=== PATIENT | female | born 1960 | race Caucasian/White ===

== ENCOUNTER 2016-07-10 15:02 | Inpatient (IN) | payer OTHER ==
[~2016-07-10] VITALS: Ht 162.6 cm; Wt 57.6 kg
[2016-07-10 16:30] VITALS: BP 152/89
[2016-07-10] MEDS ORDERED: LORAZEPAM 1 MG TABLET PO ONE ×2 (18:00→21:00)
[2016-07-10] MEDS ORDERED: 5-HY50CA2 PO (18:04)
[2016-07-10] MEDS ORDERED: FAMC250T GT (18:04)
[2016-07-10] MEDS ORDERED: MELA3TAB42 PO (18:04)
[2016-07-10] MEDS ORDERED: ALBU8.5H2 IH (18:04)
[2016-07-10] MEDS ORDERED: S-AD400T2 PO (18:04)
[2016-07-10] MEDS ORDERED: BISA5TAB13 (18:04)
[2016-07-10] MEDS ORDERED: CA C1TAB98 PO (18:04)
[2016-07-10] MEDS ORDERED: CHOL100043 PO (18:04)
[2016-07-10] MEDS ORDERED: MULT1TAB11 PO (18:04)
[2016-07-10] MEDS ORDERED: NITR100C6 PO (18:04)
[2016-07-10] MEDS ORDERED: NORE5TAB PO (18:04)
[2016-07-10] MEDS ORDERED: BALS750C PO (18:04)
[2016-07-10] MEDS ORDERED: ALBUTEROL SULFATE 8 GM HFA.AER.AD IH PRN (18:15)
[2016-07-10] MEDS ORDERED: ONDANSETRON ODT 4 MG TAB.RAPDIS SL PRN (18:15)
[2016-07-10] MEDS ORDERED: IBUPROFEN 400 MG TABLET PO PRN (18:15)
[2016-07-10] MEDS ORDERED: MAG HYDROX/AL HYDROX/SIMETH 30 ML LIQUID UDC PO PRN (18:15)
[2016-07-10] MEDS ORDERED: ACETAMINOPHEN 325 MG TABLET PO PRN (18:15)
[2016-07-10] MEDS ORDERED: LORAZEPAM 2 MG/1 ML VIAL IM PRN (18:15)
[2016-07-10] MEDS ORDERED: THIAMINE HCL 200 MG/2 ML VIAL IM ONE (18:15)
[2016-07-10] MEDS ORDERED: LORAZEPAM 1 MG TABLET PO PRN ×2 (18:15)
[2016-07-10] MEDS ORDERED: diphenhydrAMINE 50 MG CAPSULE PO PRN (18:15)
[2016-07-10] MEDS ORDERED: PROMETHAZINE HCL 25 MG/1 ML VIAL IM PRN (18:15)
[2016-07-10] MEDS ORDERED: MAGNESIUM HYDROXIDE 30 ML LIQUID UDC PO PRN (18:15)
[2016-07-10] MEDS ORDERED: DICYCLOMINE HCL 20 MG TABLET PO PRN (18:15)
[2016-07-10] MEDS ORDERED: FAMC500T PO (18:15)
[2016-07-10] MEDS ORDERED: MIRALAX 17 GM POWD.PACK PO PRN (18:15)
[2016-07-10] MEDS ORDERED: LOPERAMIDE HCL 2 MG CAPSULE PO PRN ×2 (18:15)
[2016-07-10 18:22] LABS: *AMPHETAMINE, URINE NEGATIVE (NEGATIVE); *BARBITURATE, URINE NEGATIVE (NEGATIVE); *CANNABINOID, URINE NEGATIVE (NEGATIVE); *COCCAINE, URINE NEGATIVE (NEGATIVE); *OPIATE, URINE NEGATIVE (NEGATIVE); *PHENCYCLIDINE SCREEN,URINE NEGATIVE (NEGATIVE)
[2016-07-10 18:43] LABS: BASOPHILS % (AUTO) 1.1 % (0.0-2.0); EOSINOPHILS % (AUTO) 0.7 % (0.0-7.0); HEMATOCRIT 40.6 % (37.0-47.0); HEMOGLOBIN 13.6 g/dL (12.0-16.0); LYMPHOCYTES # (AUTO) 1.1 K/uL (0.8-4.8); LYMPHOCYTES % (AUTO) 25.2 % (20.5-51.5); MEAN CORPUSCULAR HEMOGLOBIN 33.6 uug (27.0-31.0); MEAN CORPUSCULAR HGB CONC 34 g/dL (32.0-37.0); MEAN CORPUSCULAR VOLUME 100.1 fL (81.0-99.0); MONOCYTES # (AUTO) 0.4 K/uL (0.1-1.30); MONOCYTES % (AUTO) 8.1 % (0.0-11.0); NEUTROPHILS # (AUTO) 2.9 K/uL (1.8-8.9); NEUTROPHILS % (AUTO) 64.9 % (38.5-71.5); PLATELET COUNT (AUTO) 314 K/uL (150-450); RED BLOOD CELL COUNT(AUTO) 4.06 MIL/uL (4.20-5.40); RED CELL DISTRIBUTION WIDTH 12.8 % (11.5-14.5); WHITE BLOOD COUNT (AUTO) 4.4 K/uL (4.0-11.2)
[2016-07-10] MEDS: GABAPENTIN 300 MG CAPSULE PO SCH (19:01)
[2016-07-10 19:02] LABS: ALBUMIN 3.5 g/dL (3.4-5.0); BILIRUBIN,TOTAL 0.5 mg/dL (0.2-1.0); CALCIUM 8.8 mg/dL (8.5-10.1); CREATININE 0.8 mg/dL (0.6-1.3); MAGNESIUM 2.1 mg/dL (1.8-2.4); TOTAL PROTEIN, SERUM 7.2 g/dL (6.4-8.2)
[2016-07-10 19:04] LABS: THYROID STIMULATING HORMONE 1.46 mIU/mL (0.358-3.740)
[2016-07-10 19:25] LABS: HIV-1/2 ANTIBODY NON REACTIVE (NONREACTIVE)
[2016-07-10 19:26] LABS: HIV-1 p24 ANTIGEN NON REACTIVE (NONREACTIVE)
[2016-07-10 20:00] VITALS: BP 131/72
[2016-07-10] MEDS: [UNRECOGNIZED DRUG - OTHER] PO SCH (21:27)
[2016-07-11] VITALS: BP_SYST 131; BP_SYST 133; BP_DIAS 72; BP_DIAS 87
[2016-07-11] MEDS: CLONIDINE HCL 0.1 MG TABLET PO PRN (00:22)
[2016-07-11 04:00] VITALS: BP 139/83
[2016-07-11 08:00] VITALS: BP 123/75
[2016-07-11] MEDS ORDERED: FAMCICLOVIR 250 MG PO SCH (09:00)
[2016-07-11] MEDS ORDERED: TUBERCULIN,PURIF.PROT.DERIV. 5 TU/0.1 ML TEST ID ONE (09:00)
[2016-07-11] MEDS: LORAZEPAM 1 MG TABLET PO SCH ×3 (09:02→20:44)
[2016-07-11] MEDS: CHOLECALCIFEROL 1,000 UNIT TABLET PO SCH (09:02)
[2016-07-11] MEDS: GABAPENTIN 300 MG CAPSULE PO SCH ×2 (09:02→17:06)
[2016-07-11] MEDS: THIAMINE HCL 100 MG TABLET PO SCH (09:02)
[2016-07-11] MEDS: DOCUSATE SODIUM 250 MG CAPSULE PO SCH (09:02)
[2016-07-11] MEDS: NITROFURANTOIN/NITROFURAN MAC 100 MG CAPSULE PO SCH ×2 (09:02→17:06)
[2016-07-11] MEDS: MULTIVITAMINS,THERAPEUTIC TABLET PO SCH (09:02)
[2016-07-11] MEDS: FOLIC ACID 1 MG TABLET PO SCH (09:03)
[2016-07-11] MEDS: FAMCICLOVIR PO SCH ×2 (11:00→17:07)
[2016-07-11] MEDS: ESCITALOPRAM OXALATE 10 MG TABLET PO SCH (11:00)
[2016-07-11] MEDS: HYDROXYZINE PAMOATE 25 MG CAPSULE PO PRN (11:03)
[2016-07-11 12:00] VITALS: BP 130/78
[2016-07-11] MEDS: BALSALAZIDE 750 MG PO SCH ×2 (13:00→17:07)
[2016-07-11 13:42] LABS: *BILIRUBIN,URIN NEGATIVE (NEGATIVE); *BLOOD, URINE 2+ (NEGATIVE); *CLARITY,URINE CLEAR (CLEAR); *COLOR,URINE YELLOW (YELLOW); *KETONES,URINE TRACE (NEGATIVE); *PROTEIN,URINE NEGATIVE (NEGATIVE); *UROBILINOGEN,URINE 0.2 E.U./dl (NORMAL); LEUKOCYTE ESTERASE ,URINE NEGATIVE (NEGATIVE); NITRITE, URINE NEGATIVE (NEGATIVE); PH,URINE 7.5 (5.0-8.0); UGLUCOSE NEGATIVE (NEGATIVE)
[2016-07-11 13:51] LABS: BACTERIA,URINE FEW /HPF (NONE SEEN); RBC,URINE 20-50 /HPF (0-3); SQUAMOUS EPITHELIAL CELL,UR FEW /HPF (NONE SEEN); WBC,URINE 0-3 /HPF (0-3)
[2016-07-11 16:00] VITALS: BP 129/80
[2016-07-11 20:00] VITALS: BP 126/98
[2016-07-11] MEDS: TRAZODONE 100 MG TABLET PO SCH (20:44)
[2016-07-11] MEDS: [UNRECOGNIZED DRUG - OTHER] PO SCH (20:45)
[2016-07-11] MEDS ORDERED: PATIENT MAY USE OWN MED- MD OK PO SCH (21:00)
[2016-07-11] MEDS: diphenhydrAMINE 50 MG CAPSULE PO PRN (22:59)
[2016-07-11] MEDS ORDERED: diphenhydrAMINE 50 MG CAPSULE ONE (23:04)
[2016-07-12] VITALS: BP 121/68
[2016-07-12 08:00] VITALS: BP 122/63
[2016-07-12 08:41] LABS: ALBUMIN 3.4 g/dL (3.4-5.0); BILIRUBIN,DIRECT 0.2 mg/dL (0.0-0.2); BILIRUBIN,TOTAL 0.8 mg/dL (0.2-1.0); CALCIUM 9.5 mg/dL (8.5-10.1); CREATININE 0.9 mg/dL (0.6-1.3); POTASSIUM 4.2 mmol/L (3.5-5.1); TOTAL PROTEIN, SERUM 6.7 g/dL (6.4-8.2)
[2016-07-12] MEDS ORDERED: PNEUMOCOCCAL 23-VAL P-SAC VAC 0.5 ML VIAL IM ONE (09:30)
[2016-07-12] MEDS ORDERED: INFLUENZA VACCINE 0.5 ML DISP.SYRIN IM ONE (09:30)
[2016-07-12] MEDS: FOLIC ACID 1 MG TABLET PO SCH (09:54)
[2016-07-12] MEDS: MULTIVITAMINS,THERAPEUTIC TABLET PO SCH (09:54)
[2016-07-12] MEDS: FAMCICLOVIR PO SCH ×2 (09:55→17:00)
[2016-07-12] MEDS: NITROFURANTOIN/NITROFURAN MAC 100 MG CAPSULE PO SCH ×2 (09:55→17:01)
[2016-07-12] MEDS: THIAMINE HCL 100 MG TABLET PO SCH (09:55)
[2016-07-12] MEDS: GABAPENTIN 300 MG CAPSULE PO SCH ×3 (09:55→20:55)
[2016-07-12] MEDS: ESCITALOPRAM OXALATE 10 MG TABLET PO SCH (09:55)
[2016-07-12] MEDS: BALSALAZIDE 750 MG PO SCH ×3 (09:55→17:00)
[2016-07-12] MEDS: CHOLECALCIFEROL 1,000 UNIT TABLET PO SCH (09:55)
[2016-07-12] MEDS: DOCUSATE SODIUM 250 MG CAPSULE PO SCH (09:55)
[2016-07-12] MEDS: LORAZEPAM 1 MG TABLET PO SCH ×4 (09:55→20:54)
[2016-07-12 12:00] VITALS: BP 131/86
[2016-07-12 16:00] VITALS: BP 155/85
[2016-07-12 20:00] VITALS: BP 125/70
[2016-07-12] MEDS: TRAZODONE 100 MG TABLET PO SCH (20:55)
[2016-07-12] MEDS: [UNRECOGNIZED DRUG - OTHER] PO SCH (20:55)
[2016-07-12] MEDS: diphenhydrAMINE 50 MG CAPSULE PO PRN (23:39)
[2016-07-13] VITALS: BP 118/69
[2016-07-13 08:00] VITALS: BP 133/72
[2016-07-13] MEDS: CHOLECALCIFEROL 1,000 UNIT TABLET PO SCH (09:01)
[2016-07-13] MEDS: ESCITALOPRAM OXALATE 10 MG TABLET PO SCH (09:01)
[2016-07-13] MEDS: MULTIVITAMINS,THERAPEUTIC TABLET PO SCH (09:01)
[2016-07-13] MEDS: GABAPENTIN 300 MG CAPSULE PO SCH ×3 (09:01→21:04)
[2016-07-13] MEDS: FOLIC ACID 1 MG TABLET PO SCH (09:01)
[2016-07-13] MEDS: THIAMINE HCL 100 MG TABLET PO SCH (09:01)
[2016-07-13] MEDS: DOCUSATE SODIUM 250 MG CAPSULE PO SCH (09:01)
[2016-07-13] MEDS: NITROFURANTOIN/NITROFURAN MAC 100 MG CAPSULE PO SCH ×2 (09:01→16:58)
[2016-07-13] MEDS: LORAZEPAM 1 MG TABLET PO SCH ×3 (09:01→21:03)
[2016-07-13] MEDS: FAMCICLOVIR PO SCH ×2 (09:02→16:58)
[2016-07-13] MEDS: BALSALAZIDE 750 MG PO SCH ×3 (09:02→16:58)
[2016-07-13 12:00] VITALS: BP 121/82
[2016-07-13 16:00] VITALS: BP 126/78
[2016-07-13 20:00] VITALS: BP 147/79
[2016-07-13] MEDS: QUETIAPINE FUMARATE 25 MG TABLET PO SCH (21:03)
[2016-07-13] MEDS: [UNRECOGNIZED DRUG - OTHER] PO SCH (21:07)
[2016-07-14 03:06] LABS: HCV AB 0.1 s/co ratio (0.0-0.9); HEPATITIS B CORE AB, IgM Negative (Negative); HEPATITIS B SURFACE AG Negative (Negative)
[2016-07-14 08:00] VITALS: BP 126/78
[2016-07-14] MEDS: DOCUSATE SODIUM 250 MG CAPSULE PO SCH (09:25)
[2016-07-14] MEDS: GABAPENTIN 300 MG CAPSULE PO SCH ×3 (09:26→20:57)
[2016-07-14] MEDS: FOLIC ACID 1 MG TABLET PO SCH (09:26)
[2016-07-14] MEDS: THIAMINE HCL 100 MG TABLET PO SCH (09:26)
[2016-07-14] MEDS: ESCITALOPRAM OXALATE 10 MG TABLET PO SCH (09:26)
[2016-07-14] MEDS: NITROFURANTOIN/NITROFURAN MAC 100 MG CAPSULE PO SCH ×2 (09:26→17:19)
[2016-07-14] MEDS: CHOLECALCIFEROL 1,000 UNIT TABLET PO SCH (09:26)
[2016-07-14] MEDS: FAMCICLOVIR PO SCH ×2 (09:26→17:20)
[2016-07-14] MEDS: BALSALAZIDE 750 MG PO SCH ×3 (09:26→17:20)
[2016-07-14] MEDS: MULTIVITAMINS,THERAPEUTIC TABLET PO SCH (09:26)
[2016-07-14] MEDS: LORAZEPAM 1 MG TABLET PO SCH ×2 (09:26→20:56)
[2016-07-14 12:15] VITALS: BP 139/92
[2016-07-14] MEDS: CLONIDINE HCL 0.1 MG TABLET PO PRN (14:39)
[2016-07-14] MEDS: HYDROXYZINE PAMOATE 25 MG CAPSULE PO PRN (14:39)
[2016-07-14 16:00] VITALS: BP 119/69
[2016-07-14 20:00] VITALS: BP 125/65
[2016-07-14] MEDS: QUETIAPINE FUMARATE 25 MG TABLET PO SCH (20:56)
[2016-07-14] MEDS: [UNRECOGNIZED DRUG - OTHER] PO SCH (20:57)
[2016-07-15] VITALS: BP 118/69
[2016-07-15] MEDS: diphenhydrAMINE 50 MG CAPSULE PO PRN ×2 (01:01→21:15)
[2016-07-15 08:00] VITALS: BP 126/72
[2016-07-15] MEDS: THIAMINE HCL 100 MG TABLET PO SCH (08:37)
[2016-07-15] MEDS: GABAPENTIN 300 MG CAPSULE PO SCH ×3 (08:37→21:15)
[2016-07-15] MEDS: FOLIC ACID 1 MG TABLET PO SCH (08:37)
[2016-07-15] MEDS: NITROFURANTOIN/NITROFURAN MAC 100 MG CAPSULE PO SCH ×2 (08:37→17:55)
[2016-07-15] MEDS: CHOLECALCIFEROL 1,000 UNIT TABLET PO SCH (08:37)
[2016-07-15] MEDS: FAMCICLOVIR PO SCH ×2 (08:37→17:55)
[2016-07-15] MEDS: BALSALAZIDE 750 MG PO SCH ×3 (08:37→17:55)
[2016-07-15] MEDS: MULTIVITAMINS,THERAPEUTIC TABLET PO SCH (08:37)
[2016-07-15] MEDS: DOCUSATE SODIUM 250 MG CAPSULE PO SCH (08:37)
[2016-07-15] MEDS: ESCITALOPRAM OXALATE 10 MG TABLET PO SCH (08:37)
[2016-07-15] MEDS ORDERED: LORAZEPAM 1 MG TABLET PO ONE (11:30)
[2016-07-15 12:07] VITALS: BP 158/92
[2016-07-15 16:00] VITALS: BP 126/69
[2016-07-15 20:00] VITALS: BP 135/82
[2016-07-15] MEDS: QUETIAPINE FUMARATE 25 MG TABLET PO SCH (21:15)
[2016-07-15] MEDS: [UNRECOGNIZED DRUG - OTHER] PO SCH (21:16)
[2016-07-16 08:00] VITALS: BP 129/80
[2016-07-16] MEDS: BALSALAZIDE 750 MG PO SCH ×3 (08:45→16:51)
[2016-07-16] MEDS: FOLIC ACID 1 MG TABLET PO SCH (08:45)
[2016-07-16] MEDS: CHOLECALCIFEROL 1,000 UNIT TABLET PO SCH (08:45)
[2016-07-16] MEDS: GABAPENTIN 300 MG CAPSULE PO SCH ×3 (08:45→21:29)
[2016-07-16] MEDS: THIAMINE HCL 100 MG TABLET PO SCH (08:45)
[2016-07-16] MEDS: ESCITALOPRAM OXALATE 10 MG TABLET PO SCH (08:45)
[2016-07-16] MEDS: MULTIVITAMINS,THERAPEUTIC TABLET PO SCH (08:45)
[2016-07-16] MEDS: DOCUSATE SODIUM 250 MG CAPSULE PO SCH (08:46)
[2016-07-16] MEDS: FAMCICLOVIR PO SCH ×2 (08:46→16:51)
[2016-07-16 11:06] LABS: *BENZODIAZEPINES Negative (Cutoff=300)
[2016-07-16 12:00] VITALS: BP 138/83
[2016-07-16 14:57] LABS: *AMPHETAMINE, URINE NEGATIVE (NEGATIVE); *BARBITURATE, URINE NEGATIVE (NEGATIVE); *CANNABINOID, URINE NEGATIVE (NEGATIVE); *COCCAINE, URINE NEGATIVE (NEGATIVE); *OPIATE, URINE NEGATIVE (NEGATIVE); *PHENCYCLIDINE SCREEN,URINE NEGATIVE (NEGATIVE)
[2016-07-16] MEDS ORDERED: OFLOXACIN 0.3% OTIC DROP 5 ML BOTTLE OT SCH (15:30)
[2016-07-16 16:00] VITALS: BP 130/81
[2016-07-16] MEDS: CIPROFLOXACIN 0.3% OPHT DROP 2.5 ML BOTTLE RIGHTEYE SCH ×2 (18:37→21:28)
[2016-07-16 20:00] VITALS: BP 146/84
[2016-07-16] MEDS: [UNRECOGNIZED DRUG - OTHER] PO SCH (21:29)
[2016-07-16] MEDS: diphenhydrAMINE 50 MG CAPSULE PO PRN (21:29)
[2016-07-16] MEDS: QUETIAPINE FUMARATE 25 MG TABLET PO SCH (21:29)
[2016-07-17] MEDS: CIPROFLOXACIN 0.3% OPHT DROP 2.5 ML BOTTLE RIGHTEYE SCH ×4 (01:00→08:23)
[2016-07-17 08:00] VITALS: BP 132/81
[2016-07-17] MEDS: BALSALAZIDE 750 MG PO SCH (08:22)
[2016-07-17] MEDS: FAMCICLOVIR PO SCH (08:22)
[2016-07-17] MEDS: DOCUSATE SODIUM 250 MG CAPSULE PO SCH (08:23)
[2016-07-17] MEDS: MULTIVITAMINS,THERAPEUTIC TABLET PO SCH (08:23)
[2016-07-17] MEDS: CHOLECALCIFEROL 1,000 UNIT TABLET PO SCH (08:24)
[2016-07-17] MEDS: THIAMINE HCL 100 MG TABLET PO SCH (08:24)
[2016-07-17] MEDS: FOLIC ACID 1 MG TABLET PO SCH (08:24)
[2016-07-17] MEDS: GABAPENTIN 300 MG CAPSULE PO SCH (08:24)
[2016-07-17] MEDS ORDERED: CIPR2.5D11 RIGHTEYE (08:47)
[2016-07-17] MEDS ORDERED: HYDR-3895 PO (08:47)
[2016-07-17] MEDS ORDERED: Gabapentin PO (08:47)
[2016-07-17] MEDS ORDERED: ESCI10TA PO (08:47)
[2016-07-17] MEDS ORDERED: QUET25TA PO (08:47)
[2016-07-17] MEDS ORDERED: ESCITALOPRAM OXALATE 10 MG TABLET PO SCH (09:00)
== END 2016-07-17 09:36 | disposition other institution (70) | DRG 895 ==
LOC: SRC 15:08
PROVIDERS: ADMIT Internal Medicine; ATTEND Internal Medicine
PROC: HZ2ZZZZ Detoxification Services for Substance Abuse Treatment (ICD-10-PCS; principal; 2016-07-10)
PROC: HZ31ZZZ Individual Counseling for Substance Abuse Treatment, Behavioral (ICD-10-PCS; principal; 2016-07-10)
PROC: HZ41ZZZ Group Counseling for Substance Abuse Treatment, Behavioral (ICD-10-PCS; 2016-07-11)
DX: F10.230 Alcohol dependence with withdrawal, uncomplicated (principal); K85.20 Alcohol induced acute pancreatitis without necrosis or infection; N39.0 Urinary tract infection, site not specified; F33.2 Major depressive disorder, recurrent severe without psychotic features; K70.10 Alcoholic hepatitis without ascites; Y90.9 Presence of alcohol in blood, level not specified; K58.0 Irritable bowel syndrome with diarrhea; B00.9 Herpesviral infection, unspecified; Z79.899 Other long term (current) drug therapy; F41.9 Anxiety disorder, unspecified; H10.89 Other conjunctivitis
CPT/HCPCS: 36415; 70030-TC; 76770; 80307; 80346; 83690; 83735; 84443; 85025; 86580; 86592; 86705; 86803; 87086; 87340; 87806; 90686; 90732; 93005; A4663; G6040-TC; J3411; J3535; Q0163

== ENCOUNTER 2016-08-15 12:28 | Emergency (ER) | payer OTHER ==
[~2016-08-15] VITALS: Ht 162.6 cm; Wt 59.0 kg
[~2016-08-15 12:28] MED LIST: 5-HY50CA2 PO; ALBU8.5H2 IH; BALS750C PO; BISA5TAB13; CA C1TAB98 PO; CHOL100043 PO; CIPR2.5D11 RIGHTEYE; ESCI10TA PO; FAMC500T PO; Gabapentin PO; HYDR-3895 PO; MELA3TAB42 PO; MULT1TAB11 PO; NORE5TAB PO; QUET25TA PO; S-AD400T2 PO
[2016-08-15] MEDS ORDERED: LIDOCAINE HCL 1% 20 ML VIAL TP ONE (13:00)
[2016-08-15] MEDS ORDERED: TDAP DIPH,PERTUSS,TET VAC/PF 0.5 ML DISP.SYRIN IM ONE ×2 (13:00→13:12)
--- NOTE | 2016-08-15 13:12 | NUR ---
PT WAS D/C TO HOME. D/C INSTRUCTIONS GIVEN TO THE PT.
[2016-08-15 13:13] VITALS: BP 132/80
== END 2016-08-15 13:13 | disposition home or self-care (01) ==
LOC: ER 12:33
DX: S61.411A Laceration without foreign body of right hand, initial encounter (principal); W54.0XXA Bitten by dog, initial encounter; Y93.89 Activity, other specified; Y99.8 Other external cause status; Y92.89 Other specified places as the place of occurrence of the external cause
CPT/HCPCS: 12002; 90471; 90715; 99283; A4663; J3490

== ENCOUNTER 2017-03-18 17:51 | Inpatient (IN) | payer OTHER ==
[~2017-03-18] VITALS: Ht 162.6 cm; Wt 61.2 kg
[~2017-03-18 17:51] MED LIST changes: -ALBU8.5H2 IH; +ALBU8.5H8 IH; -MELA3TAB42 PO; +MELA3TAB52 PO; -NORE5TAB PO; +NORE5TAB8 PO
[2017-03-18] MEDS ORDERED: LOPERAMIDE HCL 2 MG CAPSULE PO PRN ×2 (19:15)
[2017-03-18] MEDS ORDERED: LORAZEPAM 1 MG TABLET PO PRN ×2 (19:15)
[2017-03-18] MEDS ORDERED: IBUPROFEN 600 MG TABLET PO PRN (19:15)
[2017-03-18] MEDS ORDERED: DICYCLOMINE HCL 20 MG TABLET PO PRN (19:15)
[2017-03-18] MEDS ORDERED: MIRALAX 17 GM POWD.PACK PO PRN (19:15)
[2017-03-18] MEDS ORDERED: LORAZEPAM 2 MG/1 ML VIAL IM PRN (19:15)
[2017-03-18] MEDS ORDERED: THIAMINE HCL 200 MG/2 ML VIAL IM ONE (19:15)
[2017-03-18] MEDS ORDERED: ACETAMINOPHEN 325 MG TABLET PO PRN (19:15)
[2017-03-18] MEDS ORDERED: ONDANSETRON 4 MG/2 ML VIAL IM PRN (19:15)
[2017-03-18] MEDS ORDERED: ONDANSETRON ODT 4 MG TAB.RAPDIS SL PRN (19:15)
[2017-03-18] MEDS ORDERED: MAG HYDROX/AL HYDROX/SIMETH 30 ML LIQUID UDC PO PRN (19:15)
[2017-03-18 19:32] LABS: *URINE HCG, QUAL NEGATIVE (NEGATIVE)
[2017-03-18 19:50] LABS: *AMPHETAMINE, URINE NEGATIVE (NEGATIVE); *BARBITURATE, URINE NEGATIVE (NEGATIVE); *CANNABINOID, URINE NEGATIVE (NEGATIVE); *COCCAINE, URINE NEGATIVE (NEGATIVE); *OPIATE, URINE NEGATIVE (NEGATIVE); *PHENCYCLIDINE SCREEN,URINE NEGATIVE (NEGATIVE)
[2017-03-18 20:00] VITALS: BP 134/86
[2017-03-18] MEDS ORDERED: LORAZEPAM 1 MG TABLET PO ONE (21:00)
[2017-03-18] MEDS ORDERED: PATIENT MAY USE OWN MED- MD OK PO SCH (21:00)
[2017-03-18] MEDS: diphenhydrAMINE 50 MG CAPSULE PO PRN (21:26)
[2017-03-18] MEDS ORDERED: LORAZEPAM 1 MG TABLET ONE (21:35)
[2017-03-18 21:37] LABS: BASOPHILS % (AUTO) 0.8 % (0.0-2.0); EOSINOPHILS % (AUTO) 0.2 % (0.0-7.0); HEMATOCRIT 42.8 % (37-47); HEMOGLOBIN 14.4 G/DL (12.0-16.0); LYMPHOCYTES # (AUTO) 0.6 K/UL (0.8-4.8); LYMPHOCYTES % (AUTO) 14.5 % (20.5-51.5); MEAN CORPUSCULAR HEMOGLOBIN 33.6 UUG (27.0-31.0); MEAN CORPUSCULAR HGB CONC 34 g/dL (32.0-37.0); MONOCYTES # (AUTO) 0.4 K/UL (0.1-1.30); MONOCYTES % (AUTO) 8.8 % (0.0-11.0); NEUTROPHILS # (AUTO) 3.3 K/UL (1.8-8.9); NEUTROPHILS % (AUTO) 75.7 % (38.5-71.5); PLATELET COUNT (AUTO) 322 K/UL (150-450); RED BLOOD CELL COUNT(AUTO) 4.28 MIL/UL (4.2-5.4); WHITE BLOOD COUNT (AUTO) 4.3 K/UL (4.0-11.2)
[2017-03-18 21:48] LABS: BILIRUBIN,TOTAL 0.6 mg/dL (0.2-1.0); CREATININE 0.8 mg/dL (0.6-1.3); MAGNESIUM 1.8 mg/dL (1.8-2.4); POTASSIUM 3.7 mmol/L (3.5-5.1); TOTAL PROTEIN, SERUM 7.4 g/dL (6.4-8.2)
[2017-03-19] VITALS (7 sets, daily range): BP systolic 131–152; BP diastolic 72–95
[2017-03-19] MEDS ORDERED: CARB10DR OP (02:16)
[2017-03-19] MEDS: CLONIDINE HCL 0.1 MG TABLET PO PRN (05:00)
[2017-03-19] MEDS: CHOLECALCIFEROL 1,000 UNIT TABLET PO SCH (08:15)
[2017-03-19] MEDS: MULTIVITAMINS,THERAPEUTIC TABLET PO SCH (08:16)
[2017-03-19] MEDS: LORAZEPAM 1 MG TABLET PO SCH ×4 (08:16→21:20)
[2017-03-19] MEDS: FOLIC ACID 1 MG TABLET PO SCH (08:16)
[2017-03-19] MEDS: THIAMINE HCL 100 MG TABLET PO SCH (08:17)
[2017-03-19] MEDS ORDERED: TUBERCULIN,PURIF.PROT.DERIV. 5 TU/0.1 ML TEST ID ONE (09:00)
[2017-03-19] MEDS: ESCITALOPRAM OXALATE 10 MG TABLET PO SCH (13:45)
[2017-03-19] MEDS: NORETHINDRONE PO SCH (21:20)
[2017-03-19] MEDS: [UNRECOGNIZED DRUG - OTHER] PO SCH (21:20)
[2017-03-19] MEDS: diphenhydrAMINE 50 MG CAPSULE PO PRN (21:29)
[2017-03-20 00:12] VITALS: BP 133/82
[2017-03-20 04:14] VITALS: BP 131/80
[2017-03-20 05:19] LABS: HEPATITIS B SURFACE AG Negative (Negative)
[2017-03-20 08:00] VITALS: BP 146/75
[2017-03-20 08:26] LABS: BILIRUBIN,DIRECT 0.3 mg/dL (0.0-0.2); BILIRUBIN,TOTAL 0.9 mg/dL (0.2-1.0); CREATININE 0.7 mg/dL (0.6-1.3); MAGNESIUM 1.7 mg/dL (1.8-2.4); POTASSIUM 3.9 mmol/L (3.5-5.1); TOTAL PROTEIN, SERUM 7.3 g/dL (6.4-8.2)
[2017-03-20] MEDS: MULTIVITAMINS,THERAPEUTIC TABLET PO SCH (08:46)
[2017-03-20] MEDS: FOLIC ACID 1 MG TABLET PO SCH (08:46)
[2017-03-20] MEDS: LORAZEPAM 1 MG TABLET PO SCH ×3 (08:47→20:38)
[2017-03-20] MEDS: THIAMINE HCL 100 MG TABLET PO SCH (08:47)
[2017-03-20] MEDS: ESCITALOPRAM OXALATE 10 MG TABLET PO SCH (08:47)
[2017-03-20] MEDS: FAMCICLOVIR PO SCH ×2 (08:51→16:56)
[2017-03-20] MEDS: [UNRECOGNIZED DRUG - OTHER] PO SCH ×2 (08:51→16:56)
[2017-03-20] MEDS: CHOLECALCIFEROL 1,000 UNIT TABLET PO SCH (08:52)
[2017-03-20] MEDS ORDERED: PATIENT MAY USE OWN MED- MD OK TOP SCH (09:00)
[2017-03-20] MEDS ORDERED: PATIENT MAY USE OWN MED- MD OK PO SCH (09:00)
[2017-03-20 12:00] VITALS: BP 150/87
[2017-03-20] MEDS ORDERED: NAPHAZOLINE/PHENIR OPHT DROP 15 ML BOTTLE LEFTEYE PRN (13:00)
[2017-03-20] MEDS ORDERED: MAGNESIUM OXIDE 400 MG TABLET PO ONE ×2 (15:15→21:00)
[2017-03-20 16:00] VITALS: BP 134/85
[2017-03-20 20:00] VITALS: BP 140/85
[2017-03-20] MEDS: QUETIAPINE FUMARATE 25 MG TABLET PO SCH (20:37)
[2017-03-20] MEDS: NORETHINDRONE PO SCH (20:38)
[2017-03-20] MEDS: [UNRECOGNIZED DRUG - OTHER] PO SCH (20:38)
[2017-03-21] VITALS (7 sets, daily range): BP systolic 125–158; BP diastolic 80–89
[2017-03-21] MEDS: MULTIVITAMINS,THERAPEUTIC TABLET PO SCH (09:06)
[2017-03-21] MEDS: CHOLECALCIFEROL 1,000 UNIT TABLET PO SCH (09:07)
[2017-03-21] MEDS: FOLIC ACID 1 MG TABLET PO SCH (09:07)
[2017-03-21] MEDS: [UNRECOGNIZED DRUG - OTHER] PO SCH ×2 (09:07→17:29)
[2017-03-21] MEDS: FAMCICLOVIR PO SCH ×2 (09:07→17:29)
[2017-03-21] MEDS: THIAMINE HCL 100 MG TABLET PO SCH (09:07)
[2017-03-21] MEDS: LORAZEPAM 1 MG TABLET PO SCH ×3 (09:08→17:29)
[2017-03-21] MEDS: ESCITALOPRAM OXALATE 10 MG TABLET PO SCH (09:08)
[2017-03-21] MEDS: NEOMY/BACITRAC/POLYMI OINT 28.35 GM TUBE TOP SCH ×2 (13:30→17:28)
[2017-03-21] MEDS: QUETIAPINE FUMARATE 25 MG TABLET PO SCH (20:55)
[2017-03-21] MEDS: NORETHINDRONE PO SCH (20:57)
[2017-03-21] MEDS: [UNRECOGNIZED DRUG - OTHER] PO SCH (20:57)
[2017-03-21] MEDS ORDERED: LORAZEPAM 1 MG TABLET PO SCH (21:00)
[2017-03-21] MEDS ORDERED: AMLODIPINE 5 MG TABLET PO ONE (21:00)
[2017-03-22] VITALS: BP 128/77
[2017-03-22 04:00] VITALS: BP 139/88
[2017-03-22] MEDS ORDERED: LORAZEPAM 1 MG TABLET PO SCH ×2 (09:00→21:00)
[2017-03-22] MEDS: NEOMY/BACITRAC/POLYMI OINT 28.35 GM TUBE TOP SCH ×2 (09:00→17:00)
[2017-03-22] MEDS: MULTIVITAMINS,THERAPEUTIC TABLET PO SCH (09:10)
[2017-03-22] MEDS: ESCITALOPRAM OXALATE 10 MG TABLET PO SCH (09:11)
[2017-03-22] MEDS: [UNRECOGNIZED DRUG - OTHER] PO SCH ×2 (09:11→17:29)
[2017-03-22] MEDS: CHOLECALCIFEROL 1,000 UNIT TABLET PO SCH (09:11)
[2017-03-22] MEDS: FOLIC ACID 1 MG TABLET PO SCH (09:11)
[2017-03-22] MEDS: FAMCICLOVIR PO SCH ×2 (09:11→17:29)
[2017-03-22] MEDS: AMLODIPINE 5 MG TABLET PO SCH (09:11)
[2017-03-22] MEDS: THIAMINE HCL 100 MG TABLET PO SCH (09:12)
[2017-03-22 09:51] VITALS: BP 128/83
[2017-03-22 14:42] VITALS: BP 149/84
[2017-03-22 16:03] VITALS: BP 149/84
[2017-03-22 20:00] VITALS: BP 131/78
[2017-03-22] MEDS: QUETIAPINE FUMARATE 25 MG TABLET PO SCH (20:39)
[2017-03-22] MEDS: NORETHINDRONE PO SCH (20:39)
[2017-03-22] MEDS: [UNRECOGNIZED DRUG - OTHER] PO SCH (20:39)
[2017-03-23] VITALS: BP 126/69
[2017-03-23 04:00] VITALS: BP 137/69
[2017-03-23] MEDS: CLONIDINE HCL 0.1 MG TABLET PO PRN (05:03)
[2017-03-23 08:00] VITALS: BP 117/80
[2017-03-23] MEDS: MULTIVITAMINS,THERAPEUTIC TABLET PO SCH (08:54)
[2017-03-23] MEDS: FOLIC ACID 1 MG TABLET PO SCH (08:54)
[2017-03-23] MEDS: THIAMINE HCL 100 MG TABLET PO SCH (08:54)
[2017-03-23] MEDS: CHOLECALCIFEROL 1,000 UNIT TABLET PO SCH (08:54)
[2017-03-23] MEDS: ESCITALOPRAM OXALATE 10 MG TABLET PO SCH (08:55)
[2017-03-23] MEDS: AMLODIPINE 5 MG TABLET PO SCH (08:55)
[2017-03-23] MEDS ORDERED: LORAZEPAM 1 MG TABLET PO SCH ×2 (09:00)
[2017-03-23] MEDS: [UNRECOGNIZED DRUG - OTHER] PO SCH ×2 (09:14→18:00)
[2017-03-23] MEDS: FAMCICLOVIR PO SCH ×2 (09:14→18:00)
[2017-03-23] MEDS: NEOMY/BACITRAC/POLYMI OINT 28.35 GM TUBE TOP SCH ×2 (09:15→18:00)
[2017-03-23 12:00] VITALS: BP 122/71
[2017-03-23] MEDS ORDERED: CLON0.1T14 PO (13:57)
[2017-03-23] MEDS ORDERED: QUET25TA PO (13:57)
[2017-03-23] MEDS ORDERED: DIPH50CA37 PO (13:57)
[2017-03-23] MEDS ORDERED: HYDR-3026 PO (13:57)
[2017-03-23] MEDS ORDERED: AMLO5TAB2 PO (13:57)
[2017-03-23] MEDS ORDERED: ESCI10TA PO (13:57)
[2017-03-23] MEDS ORDERED: HYDROXYZINE PAMOATE 25 MG CAPSULE PO PRN (14:00)
[2017-03-23 16:30] VITALS: BP 128/72
[2017-03-23 20:00] VITALS: BP 126/76
[2017-03-23] MEDS: QUETIAPINE FUMARATE 25 MG TABLET PO SCH (20:56)
[2017-03-23] MEDS: NORETHINDRONE PO SCH (20:56)
[2017-03-23] MEDS: [UNRECOGNIZED DRUG - OTHER] PO SCH (20:56)
[2017-03-24] VITALS: BP 122/68
[2017-03-24] MEDS: CLONIDINE HCL 0.1 MG TABLET PO PRN (02:47)
[2017-03-24 04:00] VITALS: BP 137/88
[2017-03-24 08:00] VITALS: BP 139/79
[2017-03-24] MEDS: THIAMINE HCL 100 MG TABLET PO SCH (08:57)
[2017-03-24] MEDS: CHOLECALCIFEROL 1,000 UNIT TABLET PO SCH (08:57)
[2017-03-24] MEDS: FOLIC ACID 1 MG TABLET PO SCH (08:57)
[2017-03-24] MEDS: MULTIVITAMINS,THERAPEUTIC TABLET PO SCH (08:57)
[2017-03-24 09:00] VITALS: BP 139/79
[2017-03-24] MEDS ORDERED: LORAZEPAM 1 MG TABLET PO SCH (09:00)
[2017-03-24] MEDS: [UNRECOGNIZED DRUG - OTHER] PO SCH (09:00)
[2017-03-24] MEDS: FAMCICLOVIR PO SCH (09:00)
[2017-03-24] MEDS: AMLODIPINE 5 MG TABLET PO SCH (09:00)
[2017-03-24] MEDS: NEOMY/BACITRAC/POLYMI OINT 28.35 GM TUBE TOP SCH (09:01)
[2017-03-24] MEDS: ESCITALOPRAM OXALATE 10 MG TABLET PO SCH (09:02)
== END 2017-03-24 09:30 | disposition other institution (70) | DRG 895 ==
LOC: SRC 17:51
PROVIDERS: ADMIT Internal Medicine; ATTEND Internal Medicine
PROC: HZ2ZZZZ Detoxification Services for Substance Abuse Treatment (ICD-10-PCS; principal; 2017-03-18)
PROC: HZ41ZZZ Group Counseling for Substance Abuse Treatment, Behavioral (ICD-10-PCS; 2017-03-19)
DX: F10.232 Alcohol dependence with withdrawal with perceptual disturbance (principal); E87.2 Acidosis; F33.2 Major depressive disorder, recurrent severe without psychotic features; I15.9 Secondary hypertension, unspecified; K51.90 Ulcerative colitis, unspecified, without complications; E83.42 Hypomagnesemia; K70.10 Alcoholic hepatitis without ascites; Y90.9 Presence of alcohol in blood, level not specified; Z78.0 Asymptomatic menopausal state; J45.20 Mild intermittent asthma, uncomplicated; Z81.1 Family history of alcohol abuse and dependence; Z82.49 Family history of ischemic heart disease and other diseases of the circulatory system; Z80.9 Family history of malignant neoplasm, unspecified; F41.9 Anxiety disorder, unspecified; A60.00 Herpesviral infection of urogenital system, unspecified; Z79.899 Other long term (current) drug therapy; R73.9 Hyperglycemia, unspecified
CPT/HCPCS: 36415; 70030-TC; 80307; 83735; 84703; 85025; 86580; 86592; 86705; 86803; 87340; 87806; A4663; G0480; Q0163

== ENCOUNTER 2017-10-14 09:58 | Emergency (ER) | payer OTHER ==
[~2017-10-14] VITALS: Ht 165.1 cm; Wt 70.3 kg
[~2017-10-14 09:58] MED LIST changes: +AMLO5TAB2 PO; +CARB10DR OP; -CIPR2.5D11 RIGHTEYE; +CLON0.1T14 PO; +DIPH50CA37 PO; -Gabapentin PO; +HYDR-3026 PO
[2017-10-14] MEDS ORDERED: HYDR-4077 PO (10:22)
[2017-10-14] MEDS ORDERED: GABA-532 PO (10:22)
[2017-10-14] MEDS ORDERED: NORCO 7.5/325 PO (10:22)
[2017-10-14] MEDS ORDERED: QUET100T PO (10:22)
[2017-10-14] MEDS ORDERED: NALT50TA PO (10:22)
[2017-10-14] MEDS ORDERED: ESTR1PAT85 TD (10:22)
[2017-10-14] MEDS ORDERED: QUET50TA PO (10:22)
[2017-10-14] MEDS ORDERED: TRAZ-144 PO (10:22)
[2017-10-14] MEDS ORDERED: NORE5TAB3 PO (10:22)
[2017-10-14] MEDS ORDERED: HYDR-4076 PO (10:22)
[2017-10-14] MEDS ORDERED: NALOXONE HCL 0.4 MG/ML AMPUL IV ONE (10:31)
[2017-10-14] MEDS ORDERED: IV NS 1000 ML 1,000 ML IV ONE ×2 (10:45→12:15)
--- NOTE | 2017-10-14 11:00 | NUR ---
PT BACK FROM CT SCAN , NARCAN GIVEN AND CONNECTED TO FLUIDS VIA LT WRIST LINE
--- NOTE | 2017-10-14 11:10 | NUR ---
labs drawn/ekg done, po2=92% , pt on 2l02 via n/c po2=95%
[2017-10-14 11:16] LABS: BASOPHILS # (AUTO) 0.1 K/uL (0.0-8.0); BASOPHILS % (AUTO) 1.2 % (0.0-2.0); CREATININE 0.7 mg/dL (0.6-1.3); EOSINOPHILS # (AUTO) 0.1 K/uL (0.0-0.7); EOSINOPHILS % (AUTO) 1.6 % (0.0-7.0); HEMATOCRIT 45.3 % (31.2-41.9); HEMOGLOBIN 15.6 g/dL (10.9-14.3); LYMPHOCYTES # (AUTO) 1.5 K/uL (20.0-40.0); LYMPHOCYTES % (AUTO) 25.9 % (20.5-51.5); MEAN CORPUSCULAR HEMOGLOBIN 33.1 uug (24.7-32.8); MEAN CORPUSCULAR HGB CONC 35 g/dL (32.3-35.6); MEAN CORPUSCULAR VOLUME 96.1 fL (75.5-95.3); MONOCYTES # (AUTO) 0.4 K/uL (2.0-10.0); MONOCYTES % (AUTO) 7.1 % (0.0-11.0); NEUTROPHILS # (AUTO) 3.7 K/uL (1.8-8.9); NEUTROPHILS % (AUTO) 64.2 % (38.5-71.5); PLATELET COUNT (AUTO) 373 K/uL (179-408); POTASSIUM 3.4 mmol/L (3.5-5.1); RED BLOOD CELL COUNT(AUTO) 4.71 MIL/uL (3.63-4.92); WHITE BLOOD COUNT (AUTO) 5.8 K/uL (3.8-11.8)
[2017-10-14 11:31] LABS: ACETAMINOPHEN < 2.0 ug/mL (10-30); BILIRUBIN,TOTAL 0.2 mg/dL (0.2-1.0); TOTAL PROTEIN, SERUM 7.5 g/dL (6.4-8.2)
[2017-10-14 11:32] LABS: ETHANOL 433 MG/DL (0-0)
[2017-10-14] MEDS ORDERED: NALOXONE HCL 0.4 MG/ML AMPUL ONE (11:32)
[2017-10-14] MEDS ORDERED: LORAZEPAM 2 MG/1 ML VIAL IV ONE (12:05)
[2017-10-14 12:12] LABS: *BILIRUBIN,URIN NEGATIVE (NEGATIVE); *BLOOD, URINE 2+ (NEGATIVE); *CLARITY,URINE CLEAR (CLEAR); *COLOR,URINE YELLOW (YELLOW); *KETONES,URINE 1+ (NEGATIVE); *PROTEIN,URINE NEGATIVE (NEGATIVE); *UROBILINOGEN,URINE 0.2 E.U./dl (NORMAL); LEUKOCYTE ESTERASE ,URINE NEGATIVE (NEGATIVE); NITRITE, URINE NEGATIVE (NEGATIVE); PH,URINE 6.5 (5.0-8.0); UGLUCOSE NEGATIVE (NEGATIVE)
[2017-10-14] MEDS ORDERED: LORAZEPAM 2 MG/1 ML VIAL ONE (12:14)
[2017-10-14] MEDS ORDERED: OLANZAPINE 10 MG VIAL IM ONE (12:19)
[2017-10-14 12:26] LABS: *AMPHETAMINE, URINE NEGATIVE (NEGATIVE); *BARBITURATE, URINE NEGATIVE (NEGATIVE); *CANNABINOID, URINE NEGATIVE (NEGATIVE); *COCCAINE, URINE NEGATIVE (NEGATIVE); *OPIATE, URINE NEGATIVE (NEGATIVE); *PHENCYCLIDINE SCREEN,URINE NEGATIVE (NEGATIVE)
[2017-10-14 12:28] LABS: BACTERIA,URINE FEW /HPF (NONE SEEN); RBC,URINE 0-3 /HPF (0-3); WBC,URINE 0-3 /HPF (0-3)
[2017-10-14 12:29] LABS: SQUAMOUS EPITHELIAL CELL,UR MODERATE /HPF (NONE SEEN)
--- NOTE | 2017-10-14 12:42 | NUR ---
pt was not administered zyprexia im, pt sleeping, dr montgomery agreed not to admin zyprexia
--- NOTE | 2017-10-14 14:51 | NUR ---
pt staed she was going to call er for a ride home, dr montgomery was notified.
--- NOTE | 2017-10-14 15:12 | NUR ---
dr montgomery assessed pt and noted pt unsteady, so pt told she could not leave and was moved to rm 3 , the lights were dimmed.
--- NOTE | 2017-10-14 15:30 | NUR ---
PATIENT INSISTING ON GOING HOME, INFORMED AND ORDERD TO KEEP THE PATIENT UNTILL SHE WALKS STEADY AND BECOMES MORE SOBER.
--- NOTE | 2017-10-14 15:57 | NUR ---
pt requested to have iv d/c'd, iv d/'d intact
--- NOTE | 2017-10-14 16:25 | NUR ---
Pt was re-evaluated by . Pt is A/Ox3 and ambulatory with steady gait. Pt states she will call for a ride home (Lyft). Pt to be d/c home per .
--- NOTE | 2017-10-14 16:29 | NUR ---
PATIENT MORE SOBER AND WALKING STEADY DR VALLADARES ORDERED FOR PTS DISCHARGE
--- NOTE | 2017-10-14 16:50 | NUR ---
Pt states her ride ([employer]) is has been waiting for her outside and she can no longer wait written ACI. Pt was given verbal ACI by . Pt ambulated out of ER with steady gait. Stressed follow up or return to ER for worsening s/s.
--- NOTE | 2017-10-14 16:52 | NUR ---
PT'S IV TAKEN OUT , PT FOR DISCHARGE ALL BELONGINGS WITH PT. PT LEFT WITH AN UBER.
== END 2017-10-14 16:53 | disposition home or self-care (01) ==
LOC: ER 09:58
DX: F10.129 Alcohol abuse with intoxication, unspecified (principal); Z79.891 Long term (current) use of opiate analgesic; Z79.899 Other long term (current) drug therapy
CPT/HCPCS: 36415; 70450; 71045; 80053; 80307; 81001; 82550; 84484; 85025; 85610; 93005; 96374; 96375; 99285; A4663; G0480 ×2; G0481; J2060; J2310; J7030 ×2; 70030-TC

== ENCOUNTER 2018-09-12 17:18 | Emergency (ER) | payer OTHER ==
[~2018-09-12] VITALS: Ht 165.1 cm; Wt 70.3 kg
[~2018-09-12 17:18] MED LIST changes: -5-HY50CA2 PO; -AMLO5TAB2 PO; -BALS750C PO; -BISA5TAB13; -CA C1TAB98 PO; -CARB10DR OP; -CHOL100043 PO; -CLON0.1T14 PO; -DIPH50CA37 PO; +ESTR1PAT85 TD; -FAMC500T PO; +GABA-532 PO; -HYDR-3026 PO; -HYDR-3895 PO; +HYDR-4076 PO; +HYDR-4077 PO; -MELA3TAB52 PO; -MULT1TAB11 PO; +NALT50TA PO; +NORCO 7.5/325 PO; +NORE5TAB3 PO; -NORE5TAB8 PO; +QUET100T PO; -QUET25TA PO; +QUET50TA PO; -S-AD400T2 PO; +TRAZ-182 PO
--- NOTE | 2018-09-12 17:22 | NUR ---
PT A/OX1, BIB [facility] FOR SUSPECTED ETOH. EMS WAS CALLED TO A PRIVATE RESIDENCE BY PT'S FRIEND. PER LAST IRONER'S REPORT, PT WAS FOUND LAYING ON GROUND AT HOME W/ ALCOHOL BOTTLES AROUND HER. BGL WAS 80 IN THE FIELD. PT PRESENTS W/ SMELL OF ETOH ON BREATH. VSS. PT DOES NOT APPEAR TO BE IN ANY APPARENT DISTRESS.
[2018-09-12] MEDS ORDERED: IV NORMAL SALINE 1000 ML BAG IV ONE (17:45)
[2018-09-12 18:09] LABS: BASOPHILS # (AUTO) 0.1 K/uL (0.0-8.0); BASOPHILS % (AUTO) 0.8 % (0.0-2.0); EOSINOPHILS % (AUTO) 0.1 % (0.0-7.0); HEMATOCRIT 48.1 % (31.2-41.9); HEMOGLOBIN 16.3 g/dL (10.9-14.3); LYMPHOCYTES # (AUTO) 2.1 K/uL (20.0-40.0); LYMPHOCYTES % (AUTO) 20.8 % (20.5-51.5); MEAN CORPUSCULAR HEMOGLOBIN 32.4 uug (24.7-32.8); MEAN CORPUSCULAR HGB CONC 34 g/dL (32.3-35.6); MEAN CORPUSCULAR VOLUME 95.8 fL (75.5-95.3); MONOCYTES # (AUTO) 0.5 K/uL (2.0-10.0); MONOCYTES % (AUTO) 5.4 % (0.0-11.0); NEUTROPHILS # (AUTO) 7.2 K/uL (1.8-8.9); NEUTROPHILS % (AUTO) 72.9 % (38.5-71.5); PLATELET COUNT (AUTO) 362 K/uL (179-408); RED BLOOD CELL COUNT(AUTO) 5.02 MIL/uL (3.63-4.92)
[2018-09-12 18:24] LABS: ETHANOL 346 MG/DL (0-0)
[2018-09-12 18:26] LABS: ALANINE AMINOTRANSFERASE 27 U/L (14-59); ALKALINE PHOSPHATASE 80 U/L (50-136); ASPARTATE AMINOTRANSFERASE 20 U/L (15-37); BILIRUBIN,DIRECT 0.1 mg/dL (0.0-0.2); BILIRUBIN,TOTAL 0.2 mg/dL (0.2-1.0); CARBON DIOXIDE 24 mmol/L (21-32); CHLORIDE 105 mmol/L (98-107); CREATININE 0.7 mg/dL (0.6-1.3); GLUCOSE 88 mg/dL (74-106); POTASSIUM 3.6 mmol/L (3.5-5.1); TOTAL PROTEIN, SERUM 7.4 g/dL (6.4-8.2); UREA NITROGEN, BLOOD 15 mg/dL (7-18)
--- NOTE | 2018-09-12 18:32 | NUR ---
C-SPINE PRECAUTIONS OBSERVED, PER ER MD ORDER.
[2018-09-12 18:44] LABS: ACETAMINOPHEN < 2.0 ug/mL (10-30)
--- NOTE | 2018-09-12 18:45 | NUR ---
PT TAKEN TO RADIOLOGY FOR CT SCAN.
--- NOTE | 2018-09-12 18:55 | NUR ---
PT BACK IN ER FROM RADIOLOGY FOR CT SCAN.
[2018-09-12 19:06] LABS: *AMPHETAMINE, URINE NEGATIVE (NEGATIVE); *BARBITURATE, URINE NEGATIVE (NEGATIVE); *CANNABINOID, URINE NEGATIVE (NEGATIVE); *COCCAINE, URINE NEGATIVE (NEGATIVE); *OPIATE, URINE NEGATIVE (NEGATIVE); *PHENCYCLIDINE SCREEN,URINE NEGATIVE (NEGATIVE)
--- NOTE | 2018-09-12 19:10 | NUR ---
SHIFT REPORT GIVEN TO GARCÍA Houston RN.
[2018-09-12 19:16] LABS: THYROID STIMULATING HORMONE 1.235 mIU/mL (0.358-3.740)
--- NOTE | 2018-09-12 23:00 | NUR ---
PATIENT A/OX3,AMBULATORY WITH STEADY GAIT. NO DISTRESS NOTED. PATIENT DENIES SI,DEPRESSION AT THIS
--- NOTE | 2018-09-12 23:03 | NUR ---
IV removed. Catheter intact and site benign. Pressure and 4x4 gauze applied to site. No bleeding noted.
--- NOTE | 2018-09-12 23:20 | NUR ---
PATIENT'S SISTER WAS CALLED JIMY. WILL HAVE [facility]OM[facility]IG[facility] PICK HER UP
--- NOTE | 2018-09-12 23:55 | NUR ---
Patient eloped from facility. ER physician notified.
--- NOTE | 2018-09-13 00:01 | NUR ---
INFORMED PATIENT 'S SISTER AND PATIENT'S ROOMATE BENIGNO THAT PATIENT ELOPED HOSPITAL
== END 2018-09-13 00:42 | disposition left against medical advice (07) ==
LOC: ER 17:18
DX: F10.129 Alcohol abuse with intoxication, unspecified (principal); Z79.899 Other long term (current) drug therapy; Y90.8 Blood alcohol level of 240 mg/100 ml or more
CPT/HCPCS: 36415; 70450; 71045; 72125; 80048; 80076; 80307; 82140; 84443; 85025; 99284; G0480 ×2; G0481; A4663; J7030